=== PATIENT | male | born 1995 | race Hispanic/Latino ===

== ENCOUNTER 2018-12-22 05:06 | Emergency (ER) | payer OTHER ==
[2018-12-22] MEDS ORDERED: TETANUS/DIPHTHERIA TOXOID [ADULT] 0.5 ML VIAL IM ONE (05:28)
[2018-12-22] MEDS ORDERED: OCTYL 2-CYANOACRYLATE 1 EACH TP ONE (05:53)
== END 2018-12-22 06:03 | disposition home or self-care (01) ==
LOC: EDH 05:06
DX: S61.211A Laceration without foreign body of left index finger without damage to nail, initial encounter (principal); W26.0XXA Contact with knife, initial encounter; Y93.89 Activity, other specified; Y92.098 Other place in other non-institutional residence as the place of occurrence of the external cause; Y99.8 Other external cause status
CPT/HCPCS: 12041; 90471; 90714

== ENCOUNTER 2019-11-28 13:31 | Emergency (ER) | payer OTHER | END 2019-11-28 14:12 | disposition home or self-care (01) | LOC: EDH 13:31 | DX: J06.9 Acute upper respiratory infection, unspecified (principal) | CPT/HCPCS: 99281 ==

== ENCOUNTER 2020-03-10 12:27 | Emergency (ER) | payer SELFPAY | END 2020-03-10 13:35 | disposition home or self-care (01) | LOC: EDH 12:27 | DX: J03.90 Acute tonsillitis, unspecified (principal); Z72.0 Tobacco use | CPT/HCPCS: 87880 ==

== ENCOUNTER 2021-06-05 08:44 | Emergency (ER) | payer OTHER ==
[~2021-06-05] VITALS: Ht 165.1 cm; Wt 98.0 kg
[2021-06-05 09:01] VITALS: BP 138/87
[2021-06-05] MEDS ORDERED: D-ME118S47 PO (10:12)
[2021-06-05 10:17] VITALS: BP 118/82
[2021-06-05] MEDS ORDERED: ACETAMINOPHEN 500 MG TABLET PO SCH (10:30)
== END 2021-06-05 10:29 | disposition home or self-care (01) ==
LOC: EDH 08:44
DX: U07.1 COVID-19 (principal)
CPT/HCPCS: 87635; 87804 ×2; 99283; C9803

== ENCOUNTER 2021-06-10 19:50 | Emergency (ER) | payer SELFPAY ==
[~2021-06-10] VITALS: Ht 167.6 cm; Wt 109.3 kg
[~2021-06-10 19:50] MED LIST: D-ME118S47 PO
[2021-06-10 19:51] VITALS: BP 112/66
[2021-06-10] MEDS ORDERED: BENZONATATE 100 MG CAPSULE PO SCH (21:00)
[2021-06-10] MEDS ORDERED: IBUPROFEN 600 MG TABLET PO ONE (21:00)
== END 2021-06-10 21:20 | disposition left against medical advice (07) ==
LOC: EDH 19:50
DX: R05 Cough (principal); J02.9 Acute pharyngitis, unspecified; Z53.21 Procedure and treatment not carried out due to patient leaving prior to being seen by health care provider

== ENCOUNTER 2021-07-12 07:24 | Emergency (ER) | payer SELFPAY ==
[~2021-07-12] VITALS: Ht 167.6 cm; Wt 117.9 kg
[2021-07-12] MEDS ORDERED: IBUPROFEN 800 MG TAB ONE (08:32)
[2021-07-12] MEDS ORDERED: IBUP-2088 PO (08:38)
[2021-07-12 08:59] VITALS: BP 128/76
== END 2021-07-12 09:00 | disposition home or self-care (01) ==
LOC: EDH 07:24
DX: S83.92XA Sprain of unspecified site of left knee, initial encounter (principal); X50.1XXA Overexertion from prolonged static or awkward postures, initial encounter; Y93.89 Activity, other specified; Y92.89 Other specified places as the place of occurrence of the external cause; Y99.8 Other external cause status
CPT/HCPCS: 73562

== ENCOUNTER 2021-10-05 14:11 | Emergency (ER) | payer OTHER ==
[~2021-10-05] VITALS: Ht 167.6 cm; Wt 108.9 kg
[~2021-10-05 14:11] MED LIST changes: +IBUP-2088 PO
[2021-10-05 14:15] VITALS: BP 136/86
== END 2021-10-05 17:11 | disposition left against medical advice (07) ==
LOC: EDH 14:11
DX: J02.9 Acute pharyngitis, unspecified (principal); Z53.21 Procedure and treatment not carried out due to patient leaving prior to being seen by health care provider
CPT/HCPCS: 87804; 87880

== ENCOUNTER 2022-09-06 10:21 | Emergency (ER) | payer OTHER ==
[~2022-09-06] VITALS: Ht 167.6 cm; Wt 108.9 kg
[2022-09-06 10:25] VITALS: BP 142/94
[2022-09-06] MEDS ORDERED: GUAIF10 PO (12:54)
[2022-09-06] MEDS ORDERED: P-EP-94 PO (12:54)
[2022-09-06] MEDS ORDERED: IBUP-2070 PO (12:54)
== END 2022-09-06 12:59 | disposition home or self-care (01) ==
LOC: EDH 10:21
DX: U07.1 COVID-19 (principal); Z98.890 Other specified postprocedural states
CPT/HCPCS: 99283; 87635; 87880; 87804 ×2; C9803